=== PATIENT | female | born 1955 | race Caucasian/White ===

== ENCOUNTER 2017-01-02 09:11 | Emergency (ER) | payer OTHER ==
[~2017-01-02] VITALS: Ht 165.1 cm; Wt 74.4 kg
[2017-01-02 09:19] VITALS: BP 119/91
== END 2017-01-02 10:45 | disposition home or self-care (01) ==
LOC: ED 09:11
DX: S20.212A Contusion of left front wall of thorax, initial encounter (principal); I10 Essential (primary) hypertension; J44.9 Chronic obstructive pulmonary disease, unspecified; W17.89XA Other fall from one level to another, initial encounter; Y93.89 Activity, other specified; Y99.8 Other external cause status; Y92.89 Other specified places as the place of occurrence of the external cause

== ENCOUNTER 2017-01-04 15:09 | Emergency (ER) | payer OTHER ==
[~2017-01-04] VITALS: Ht 165.1 cm; Wt 77.8 kg
[2017-01-04 17:40] VITALS: BP 130/70
== END 2017-01-04 17:40 | disposition home or self-care (01) ==
LOC: ED 15:09
DX: S29.9XXA Unspecified injury of thorax, initial encounter (principal); S05.72XA Avulsion of left eye, initial encounter; I10 Essential (primary) hypertension; J44.9 Chronic obstructive pulmonary disease, unspecified; F17.200 Nicotine dependence, unspecified, uncomplicated; W01.0XXA Fall on same level from slipping, tripping and stumbling without subsequent striking against object, initial encounter; Y93.89 Activity, other specified; Y92.89 Other specified places as the place of occurrence of the external cause; Y99.8 Other external cause status
CPT/HCPCS: 99406; J1100; J1885

== ENCOUNTER 2017-01-11 19:21 | Emergency (ER) | payer OTHER ==
[2017-01-11 19:38] VITALS: BP 145/79
== END 2017-01-11 20:38 | disposition home or self-care (01) ==
LOC: ED 19:21
DX: H04.302 Unspecified dacryocystitis of left lacrimal passage (principal); J44.9 Chronic obstructive pulmonary disease, unspecified; I10 Essential (primary) hypertension; Z79.1 Long term (current) use of non-steroidal anti-inflammatories (NSAID); Z79.891 Long term (current) use of opiate analgesic
CPT/HCPCS: J0696

== ENCOUNTER 2017-01-29 10:23 | Emergency (ER) | payer OTHER ==
[2017-01-29 11:08] VITALS: BP 132/76
== END 2017-01-29 11:08 | disposition home or self-care (01) ==
LOC: ED 10:23
DX: K04.7 Periapical abscess without sinus (principal); J44.9 Chronic obstructive pulmonary disease, unspecified; I10 Essential (primary) hypertension